=== PATIENT | male | born 1965 | race Caucasian/White ===

== ENCOUNTER 2016-10-12 16:31 | Emergency (ER) | payer SELFPAY ==
[~2016-10-12] VITALS: Ht 170.2 cm; Wt 81.4 kg
[2016-10-12] MEDS ORDERED: IBUPROFEN 600 MG TABLET PO ONE (20:30)
[2016-10-12 20:37] VITALS: BP 121/85
== END 2016-10-12 20:39 | disposition home or self-care (01) ==
LOC: EMS 16:34
DX: S90.111A Contusion of right great toe without damage to nail, initial encounter (principal); W22.8XXA Striking against or struck by other objects, initial encounter; Y93.89 Activity, other specified; Y92.89 Other specified places as the place of occurrence of the external cause; Y99.8 Other external cause status
CPT/HCPCS: 99284

== ENCOUNTER 2019-03-22 16:20 | Emergency (ER) | payer MEDICAID ==
[~2019-03-22] VITALS: Ht 170.2 cm; Wt 87.3 kg
[2019-03-22] MEDS: HYDROCODONE/ACETAMINOPHEN 5-325 MG TABLET PO ONE (17:06)
[2019-03-22] MEDS ORDERED: CEPH250 PO (17:07)
[2019-03-22] MEDS ORDERED: LORA10TA7 PO (17:07)
[2019-03-22 18:30] VITALS: BP 133/93
== END 2019-03-22 18:56 | disposition home or self-care (01) ==
LOC: EMS 16:22
DX: S86.911A Strain of unspecified muscle(s) and tendon(s) at lower leg level, right leg, initial encounter (principal); X58.XXXA Exposure to other specified factors, initial encounter; Y93.01 Activity, walking, marching and hiking; Y92.89 Other specified places as the place of occurrence of the external cause; Y99.8 Other external cause status
CPT/HCPCS: 93971

== ENCOUNTER 2025-03-09 06:27 | Emergency (ER) | payer MEDICAID ==
[~2025-03-09] VITALS: Ht 170.2 cm; Wt 72.7 kg
[2025-03-09 06:27] VITALS: TEMP 99
[~2025-03-09 06:27] MED LIST: CEPH-556 PO; LORA10TA7 PO
[2025-03-09 07:28] LABS: PLATELET COUNT (AUTO) 443 K/uL (150-450); RED BLOOD CELL COUNT(AUTO) 4.36 MIL/uL (4.50-5.90); RED CELL DISTRIBUTION WIDTH 14.1 % (11.5-14.5); WHITE BLOOD COUNT (AUTO) 9.1 K/uL (4.5-11.0)
[2025-03-09 07:36] LABS: CALCIUM, TOTAL 8.0 mg/dL (8.8-10.5); CREATININE 1.26 mg/dL (0.60-1.30); GLOMERULAR FILTR. RATE CALC 59 mL/min (>60); GLUCOSE,RANDOM 279 mg/dL (70-110); SODIUM SERUM 138 mmol/L (136-145); UREA NITROGEN, BLOOD 23 mg/dL (7-18)
[2025-03-09 07:44] LABS: TROPONIN I-HIGH SENSITIVITY 6 ng/L (<76)
[2025-03-09] MEDS: FAMOTIDINE 20 MG TABLET PO ONE (08:29)
[2025-03-09] MEDS: MAG HYDROX/ALUMINUM HYD/SIMETH ES 30 ML SUSPENSION UDCUP PO ONE (08:29)
[2025-03-09] MEDS: BACLOFEN 10 MG TABLET PO ONE (08:55)
[2025-03-09] MEDS ORDERED: BACL10TA PO (09:19)
[2025-03-09 09:40] VITALS: BP 130/68; PULSE 88; RESP 15; O2SAT 98
== END 2025-03-09 09:43 | disposition home or self-care (01) ==
LOC: EMS 06:27
DX: R06.6 Hiccough (principal); R10.13 Epigastric pain; Z79.899 Other long term (current) drug therapy
CPT/HCPCS: 71045; 80048; 83690; 83880; 84484; 85025; 93005; 99285; 36415-L1; 36415-TC